=== PATIENT | female | born 1945 | race Caucasian/White ===

== ENCOUNTER 2020-07-28 21:17 | Emergency (ER) | payer MEDICARE ==
[~2020-07-28] VITALS: Ht 154.9 cm; Wt 86.2 kg
[~2020-07-28 21:17] MED LIST: ANTIVERT25 MG PO; ASPIRIN ENTERIC81 M1 PO; CIPRO500 MG PO; KEFLEX500 MG PO; LIPITOR40 MG PO; LISINOPRIL2.5 MG PO; METFORMIN500 MG PO; PREDNISONE10 MG PO; TRANSDERM0.33 MG/24 T; TYLENOL325 M1 PO; TYLENOL500 MG PO; VISTARIL25 M1 PO; VISTARIL25 MG PO; VITAMIN D1000 IU PO; ZESTRIL2.5 MG PO; ZOLOFT25 MG PO; ZOVIRAX 5%2 GM PO; ZOVIRAX800 MG PO
== END 2020-07-28 23:53 | disposition home or self-care (01) ==
LOC: ED 21:17
DX: S20.20XA Contusion of thorax, unspecified, initial encounter (principal); M25.551 Pain in right hip; I10 Essential (primary) hypertension; F41.9 Anxiety disorder, unspecified; F32.9 Major depressive disorder, single episode, unspecified; E11.9 Type 2 diabetes mellitus without complications; M19.90 Unspecified osteoarthritis, unspecified site; I25.10 Atherosclerotic heart disease of native coronary artery without angina pectoris; Z88.2 Allergy status to sulfonamides; Z79.899 Other long term (current) drug therapy; Y08.89XA Assault by other specified means, initial encounter; Y93.89 Activity, other specified; Y92.89 Other specified places as the place of occurrence of the external cause; Y99.8 Other external cause status